=== PATIENT | female | born 1990 ===

== ENCOUNTER 2023-03-15 20:00 | Inpatient (IN) | payer MEDICAID ==
[~2023-03-15] VITALS: Ht 154.9 cm; Wt 66.2 kg
[2023-03-16] MEDS ORDERED: acetaminophen 325mg tablet PO PRN ×2 (13:10)
[2023-03-16] MEDS ORDERED: loperamide 2mg capsule PO PRN (13:10)
[2023-03-16] MEDS ORDERED: mag hydrox/Alum hydrox/simeth 30ml oral suspension PO PRN (13:10)
[2023-03-16] MEDS ORDERED: magnesium hydroxide 30ml (MOM) UD suspension PO PRN (13:10)
[2023-03-16 13:25] VITALS: BP 115/69; PULSE 80; RESP 16; TEMP 97.9; O2SAT 97
[2023-03-16] MEDS ORDERED: LORazepam 1 MG tablet PO ONE (13:45)
[2023-03-16 15:26] VITALS: RESP 16; O2SAT 97
[2023-03-16] MEDS ORDERED: SENN-263 PO (15:58)
[2023-03-16] MEDS ORDERED: LITH300T5 PO (15:58)
[2023-03-16] MEDS ORDERED: METF-1203 PO (15:58)
[2023-03-16] MEDS ORDERED: OMEP20CA16 PO (15:58)
[2023-03-16] MEDS ORDERED: LUMA21CA PO (15:58)
[2023-03-16] MEDS ORDERED: ATEN-236 PO (15:58)
[2023-03-16] MEDS: NICOTINE POLACRILEX 2 MG LOZENGE BC PRN ×2 (16:46→19:08)
--- NOTE | 2023-03-16 18:09 | NUR ---
Admission Note: Lyndsey 5150 states "You are unable to care for yourself, have pulled down your pants and had feces all over, and have delayed responses/speech". Received pt. at 1308 as a direct admit from [facility] in [place]. Pt. cooperated in skin check, however, while showering pt. became paranoid and walked out of the shower nude because she was afraid that she was locked in the shower yelling dont lock me in. Pt. observed talking on the phone crying and stating everybody is being mean and pushing me and stuff. Pt. insisting she does not belong on a mental health unit. Pt. had to be asked to leave the nurses station several times and verbally yelled at the staff when asked to leave. Pt. easily agitated, paranoid that staff are lying to her. Pt. having difficulty listening and understanding. Pt. internally responding, laughing and singing. During interview pt became distracted multiple times due to internal stimuli. At one point patient was heard talking to her voices. When asked if hearing voices pt. states yes, I have some bad spirits. Pt. received 2mg Ativan PO with good effect.
[2023-03-16 19:00] VITALS: RESP 18; O2SAT 98
[2023-03-16 20:00] VITALS: BP 119/70; PULSE 80; RESP 18; TEMP 98.1; O2SAT 98
[2023-03-16] MEDS: sennosides 8.6mg tablet PO SCH (20:00)
[2023-03-16] MEDS ORDERED: sennosides 8.6mg tablet PO SCH (20:00)
[2023-03-16] MEDS: lithium carbonate 150mg capsule PO SCH (20:27)
[2023-03-16] MEDS: atenolol 25mg tablet PO SCH (20:29)
[2023-03-16] MEDS ORDERED: OLANZAPINE 5 MG TABLET PO SCH (21:00)
--- NOTE | 2023-03-17 04:48 | NUR ---
Nursing Progress Note: Lyndsey Problem: Per admission note, 5150 states "You are unable to care for yourself, have pulled down your pants and had feces all over, and have delayed responses/speech". Interventions: Provided 1:1 assessment, maintained a safe and supportive environment, provided clear and simple instructions, attempted to reorient pt. to reality, provided redirection and intervention as needed, medication administration/education/monitoring, and maintained Q15 min safety checks. Response: Pt received on unit at nurses station requesting for a Nicotine lozenge. Her responses were delayed. Pt is engaging with staff when her requests are needing to be met but is guarded when staff is interviewing her. Pt reports no sleep disturbances at this times but has had trouble sleeping in the past. Pt has too much appetite eating dinner and various snacks. Pt will continue to be monitoring for adverse reactions to medications. Pt appearance is disheveled. Pt second interaction with staff is guarded. Pt orientation x2. Speech is slowed. Thought process is circumstantial. Thought content is anxious. Pt will continue to be assessed for visual/audio hallucinations Pt appears to be internally responding to internal stimuli as evidenced by smirking at times with no present external stimuli. Pt has poor insight. Pt judgement is poor. Mood is anxious. Pt had a tearful episode but chose to remain alone. Patch Sander provided supportive environment. Affect is constricted. Unable to assess memory due to patient choosing to discuss her care with MD and not data analyst report writer. Pt was compliant with taking most medications but refused Senna. Pt reports diarrhea. Pt requested for PRN Robitussin for sleep. Patch Sander explained purpose of Robitussin. Pt has no active cough at this time. Plan: Pt. continues to require as safe and supportive environment. Addendum: 03/17/23 at 0457 by Chantale Sharp RN CHERYL documentation: I have reviewed all intervention and assessments performed and documented by CHERYL Boudreaux.
[2023-03-17 07:30] VITALS: RESP 14; O2SAT 98
[2023-03-17 07:40] VITALS: BP 95/50; PULSE 68; RESP 14; TEMP 98.5; O2SAT 98
[2023-03-17] MEDS ORDERED: metFORMIN 500mg tablet PO SCH (08:00)
[2023-03-17] MEDS: famotidine 20mg tablet PO SCH (08:12)
[2023-03-17] MEDS: nicotine 21mg patch - 24 hr TD SCH (08:12)
[2023-03-17] MEDS: sennosides 8.6mg tablet PO SCH ×3 (08:12→21:50)
[2023-03-17] MEDS: pantoprazole 40mg Tablet.DR PO SCH (08:12)
[2023-03-17] MEDS: metFORMIN 500mg tablet PO SCH (08:12)
[2023-03-17] MEDS: NICOTINE POLACRILEX 2 MG LOZENGE BC PRN ×2 (08:17→13:17)
[2023-03-17] MEDS: hydrOXYzine 25 MG tablet PO PRN ×2 (10:02→16:02)
--- NOTE | 2023-03-17 15:07 | NUR ---
INFO FROM [facility] Mateo Mendez (ph# [phone]), Clinician from [facility], called to provide information. He reported the following: Lyndsey was released from [facility] October 2022. She had been conserved for 5-6 years. [facility] she began tapering off clozaril with her psychiatrist at [facility] due to her request. Per Mateo, Lyndsey was quite stable and doing well on clozaril. She has been completely off clozaril December/January 2023. She has not been doing well with her current medication regimen which includes caplyta. He reported they have noticed an increase in paranoia, anxiety, attending to internal stimuli, and has been unable to function. [facility] which is some sort of [facility] independent, congregate living. She is able to return to her living situation upon discharge. Mateo requested Lyndsey go back on clozaril. TAISHA Dale
[2023-03-17] MEDS ORDERED: CLOZAPINE 25 MG oral disintegrating tablet PO PRN ×3 (15:25)
[2023-03-17] MEDS: CLOZAPINE 25 MG oral disintegrating tablet PO SCH ×2 (16:24→21:44)
--- NOTE | 2023-03-17 16:44 | NUR ---
Nursing Progress Note: Lyndsey Problem: 5150 states "You are unable to care for yourself, have pulled down your pants and had feces all over, and have delayed responses/speech". Received pt. as a direct admit from [facility] in [place]. Pt. has history of schizophrenia, bipolar, and DM II. Interventions: Provided 1:1 assessment, maintained a safe and supportive environment, provided clear and simple instructions, attempted to reorient pt. to reality, provided redirection and intervention as needed, medication administration/education/monitoring, and maintained Q15 min safety checks. Response: Pt received asleep. Pt. has a labile mood, while passing am medications pt. began to cry about having diabetes due to metformin prescribed. Pt is engaging with staff when she has needs to be met but is guarded when staff interact with her otherwise. Pt. observed staff splitting to get desires met and is continuously asking to change rooms. Pt. becomes easily agitated if asked to clarify needs or if staff do not move quickly enough for her. Quick Mixer Operator found urine in pt.s trash cans; trash cans were removed from her room. Pt. states that her right heel hurts because she is being spiritually attacked and stated why would God send me here? Pt. ate all meals in the community room. Pt. went out on patio today. Pt took all medications cooperatively. Gave PRN Atarax 50mg with minimal effect. Pt. started on Clozapine today. Pt. displays episodes of difficulty processing information and is observed thought blocking. Thought process is circumstantial and thought content is anxious. Pt. displaying paranoia by asking to make sure staff are checking all the correct boxes when charting and by asking to see what was written down. Pt. appearance is disheveled. Performed 1:1 at bedside. Pt. denies SI/HI, and AVH. Pt. observed interacting with other patients. Plan: Pt. continues to require as safe and supportive environment.
[2023-03-17 19:00] VITALS: BP 119/65; PULSE 92; RESP 18; TEMP 98; O2SAT 99
[2023-03-17] MEDS: atenolol 25mg tablet PO SCH (21:43)
[2023-03-17] MEDS: lithium carbonate 150mg capsule PO SCH (21:43)
--- NOTE | 2023-03-18 04:26 | NUR ---
Nursing Progress Note: Lyndsey Problem: Per admission note, 5150 states "You are unable to care for yourself, have pulled down your pants and had feces all over, and have delayed responses/speech". Interventions: Provided 1:1 assessment, maintained a safe and supportive environment, provided clear and simple instructions, attempted to reorient pt. to reality, provided redirection and intervention as needed, medication administration/education/monitoring, and maintained Q15 min safety checks. Response: Pt received sleeping in room. Pt was offered snack but did not participate. She slept throughout shift. She briefly awoke to take Hs medications including Clozaril. Pt refused Senna. Pt appeared drowsy and had brief periods of paranoia during medications pass. Pt will continue to be monitoring for adverse reactions to medications. Pt appearance is disheveled. Plan: Pt. continues to require as safe and supportive environment. Addendum: 03/18/23 at 0553 by Perlita Newman RN I have reviewed the PICTURE FRAME MAKER note. Perlita Newman RN
[2023-03-18] MEDS: CLOZAPINE 25 MG oral disintegrating tablet PO SCH ×2 (07:52→20:21)
[2023-03-18] MEDS: nicotine 21mg patch - 24 hr TD SCH (07:52)
[2023-03-18] MEDS: sennosides 8.6mg tablet PO SCH ×2 (07:53→20:20)
[2023-03-18] MEDS: metFORMIN 500mg tablet PO SCH (07:53)
[2023-03-18] MEDS: pantoprazole 40mg Tablet.DR PO SCH (07:53)
[2023-03-18] MEDS: famotidine 20mg tablet PO SCH (07:53)
[2023-03-18 08:00] VITALS: BP 91/42; PULSE 74; RESP 12; TEMP 98.5; O2SAT 97
[2023-03-18] MEDS: NICOTINE POLACRILEX 2 MG LOZENGE BC PRN ×2 (08:04→16:56)
[2023-03-18] MEDS: hydrOXYzine 25 MG tablet PO PRN (08:24)
--- NOTE | 2023-03-18 11:49 | NUR ---
Initial: Pt admit for gravely disabled d/t mental illness. Currently on a regular diet and eating well, documented with average 90% PO intake meeting estimated nutrient needs. LBM 03/17 per EMR, receiving routine bowel care. No nutrition intervention implemented at this time. Will continue to follow. Recommendations: 1) Continue regular diet 2) Routine bowel care 3) Weekly scaled weights Addendum: 03/18/23 at [address] Amended: Links added.
--- NOTE | 2023-03-18 16:36 | NUR ---
Nursing Progress Note: Lyndsey Problem: 5150 states "You are unable to care for yourself, have pulled down your pants and had feces all over, and have delayed responses/speech". Received pt. as a direct admit from [facility] in [place]. Pt. has history of schizophrenia, bipolar, and DM II. Interventions: Provided 1:1 assessment, maintained a safe and supportive environment, provided clear and simple instructions, attempted to reorient pt. to reality, provided redirection and intervention as needed, medication administration/education/monitoring, and maintained Q15 min safety checks. Response: Received pt. asleep. Woke for breakfast and was compliant with medications. Pt. displaying a labile mood. Pt. has difficulty processing RNs directions and responses continuously stating why isnt anyone understanding me. Pt. displaying paranoia by asking to see what was written down and trying to take papers from this RN. Pt. stated several times I have my rights when staff is having conversations. Pt. appearance is disheveled. Pt. ate all meals in the community room. Gave PRN Atarax 50mg with minimal effect. Pt. threw candy given to her at the litigation legal secretary in the nursing station. Performed 1:1 at bedside. Pt. denies SI/HI, and AVH. PRN Clozapine 25mg given with good effect. Pt. napping intermittently. Plan: Pt. continues to require as safe and supportive environment.
[2023-03-18 19:00] VITALS: BP 121/75; PULSE 92; RESP 14; TEMP 98; O2SAT 100
[2023-03-18] MEDS: lithium carbonate 150mg capsule PO SCH (20:20)
[2023-03-18] MEDS: atenolol 25mg tablet PO SCH (20:21)
--- NOTE | 2023-03-18 21:00 | NUR ---
Pt did not have Nicotine patch in place. Pt labile during requesting to see site of administration. Pt stated the prior nurse removed patch. Addendum: 03/18/23 at 2332 by Janusz Masterson LVN, LVN Amended: Links added.
--- NOTE | 2023-03-19 05:40 | NUR ---
Nursing Progress Note: Lyndsey Problem: Per admission note, 5150 states "You are unable to care for yourself, have pulled down your pants and had feces all over, and have delayed responses/speech". Interventions: Provided 1:1 assessment, maintained a safe and supportive environment, provided clear and simple instructions, attempted to reorient pt. to reality, provided redirection and intervention as needed, medication administration/education/monitoring, and maintained Q15 min safety checks. Response: Pt received on unit in room. Pt observed pacing through lee and spending time in day room. Pt continues to report large appetite. Pt stating she wants to take all her medications in order to discharge as planned with MD. After medication pass, proposal writer requested patient to remove nicotine patch. Pt was not able to find patch on bilateral upper arms and stated prior nurse had collected. Pt was easily agitated with request. Pt spent rest of shift in room. Plan: Pt. continues to require as safe and supportive environment.
[2023-03-19 07:00] VITALS: RESP 12; O2SAT 97
[2023-03-19 08:00] VITALS: BP 103/57; PULSE 74; RESP 16; TEMP 98.2; O2SAT 98
[2023-03-19] MEDS: nicotine 21mg patch - 24 hr TD SCH (08:24)
[2023-03-19] MEDS: CLOZAPINE 25 MG oral disintegrating tablet PO SCH ×2 (08:25→20:17)
[2023-03-19] MEDS: pantoprazole 40mg Tablet.DR PO SCH (08:26)
[2023-03-19] MEDS: sennosides 8.6mg tablet PO SCH ×2 (08:26→20:17)
[2023-03-19] MEDS: metFORMIN 500mg tablet PO SCH (08:26)
[2023-03-19] MEDS: famotidine 20mg tablet PO SCH (08:26)
--- NOTE | 2023-03-19 17:47 | NUR ---
Nursing Progress Note: Problem: 5150 states "You are unable to care for yourself, have pulled down your pants and had feces all over, and have delayed responses/speech". Received pt. as a direct admit from [facility] in [place]. Pt. has history of schizophrenia, bipolar, and DM II. Interventions: Provided 1:1 assessment, maintained a safe and supportive environment, provided clear and simple instructions, attempted to reorient pt. to reality, provided redirection and intervention as needed, medication administration/education/monitoring, and maintained Q15 min safety checks. Response: Patient woke before breakfast. She is irritable and labile in the morning. Patient eats in the dining room with her peers, and is compliant with all medications. She appears disoriented and makes bizarre statements in the morning, then afternoon she clears and is making normal requests like, may I have a piece of tape so I can hang my picture? She naps intermittently through the day and during wake times she is coloring, pacing, or sitting in her chair. Patient will not speak about the reason she is here. Plan: Pt. continues to require as safe and supportive environment.
[2023-03-19 19:17] VITALS: BP 119/70; PULSE 87; RESP 16; TEMP 98.3; O2SAT 98
[2023-03-19] MEDS: lithium carbonate 150mg capsule PO SCH (20:17)
[2023-03-19] MEDS: atenolol 25mg tablet PO SCH (20:18)
--- NOTE | 2023-03-19 21:13 | NUR ---
Nursing Progress Note: Problem: 5150 states "You are unable to care for yourself, have pulled down your pants and had feces all over, and have delayed responses/speech". Received pt. as a direct admit from [facility] in [place]. Pt. has history of schizophrenia, bipolar, and DM II. Interventions: Provided 1:1 assessment, maintained a safe and supportive environment, provided clear and simple instructions, attempted to reorient pt. to reality, provided redirection and intervention as needed, medication administration/education/monitoring, and maintained Q15 min safety checks. Response: Pt was in the hallway at change of shift every day. Pt is demanding and irritable, "if you're my nurse can you get my meds now? I want to go to bed." Explained to patient the meds are given on schedule. Pt states she wants to take her meds on time. Pt states 'I dont know why Im here, I'm ready to go home! You tell me when I can go." Pt took a shower and had snacks and remained somewhat agitated. Pt went to bed. "Can you close that door and quit bugging me!" Plan: Pt. continues to require as safe and supportive environment.
[2023-03-20] MEDS ORDERED: CLOZAPINE 25 MG oral disintegrating tablet PO PRN (06:35)
[2023-03-20 07:30] VITALS: RESP 12; O2SAT 97
[2023-03-20] MEDS: nicotine 21mg patch - 24 hr TD SCH (07:47)
[2023-03-20] MEDS: CLOZAPINE 25 MG oral disintegrating tablet PO SCH (07:47)
[2023-03-20] MEDS: metFORMIN 500mg tablet PO SCH (07:47)
[2023-03-20] MEDS: pantoprazole 40mg Tablet.DR PO SCH (07:47)
[2023-03-20] MEDS: sennosides 8.6mg tablet PO SCH ×2 (07:47→20:24)
[2023-03-20] MEDS: famotidine 20mg tablet PO SCH (07:47)
[2023-03-20] MEDS: NICOTINE POLACRILEX 2 MG LOZENGE BC PRN (07:56)
[2023-03-20 08:56] VITALS: BP 124/58; PULSE 74; RESP 16; TEMP 99.2; O2SAT 97
--- NOTE | 2023-03-20 11:31 | NUR ---
Nursing Progress Note: Problem: 5150 states "You are unable to care for yourself, have pulled down your pants and had feces all over, and have delayed responses/speech". Received pt. as a direct admit from [facility] in [place]. Pt. has history of schizophrenia, bipolar, and DM II. Interventions: Provided 1:1 assessment, maintained a safe and supportive environment, provided clear and simple instructions, attempted to reorient pt. to reality, provided redirection and intervention as needed, medication administration/education/monitoring, and maintained Q15 min safety checks. Response: Patient wakes up irritable and bad mood. Lab came to draw blood, but patient threw us out of her room because she thought the mission worker did not move fast enough. She has no patience or frustration tolerance. When she wants something its a demand, not a request. Her thought process does not allow flexibility. She denies MH symptoms and is in denial that she has a mental illness. Patient spends most of her time on her bed, no groups or socialization. Plan: Pt. continues to require as safe and supportive environment.
[2023-03-20] MEDS ORDERED: clozapine 25mg tablet PO SCH (15:57)
[2023-03-20] MEDS ORDERED: clozapine 25mg tablet PO PRN ×3 (15:58→15:59)
[2023-03-20 19:00] VITALS: RESP 18; O2SAT 99
[2023-03-20] MEDS: atenolol 25mg tablet PO SCH (20:23)
[2023-03-20] MEDS: lithium carbonate 150mg capsule PO SCH (20:24)
[2023-03-20] MEDS: LORazepam 0.5 MG tablet PO PRN (20:24)
[2023-03-20 20:47] VITALS: BP 118/85; PULSE 105; RESP 18; TEMP 98.9; O2SAT 99
--- NOTE | 2023-03-21 05:11 | NUR ---
Nursing Progress Note: Lyndsey Problem: 5150 states "You are unable to care for yourself, have pulled down your pants and had feces all over, and have delayed responses/speech". Received pt. as a direct admit from [facility] in [place]. Pt. has history of schizophrenia, bipolar, and DM II. Interventions: Provided 1:1 assessment, maintained a safe and supportive environment, provided clear and simple instructions, attempted to reorient pt. to reality, provided redirection and intervention as needed, medication administration/education/monitoring, and maintained Q15 min safety checks. Response: Pt is at the nurses station asking about her blood draw. I am supposed to get my blood test so I can leave tomorrow. Lab called about drawing pt. and they came up to the unit and did a blood draw on two other pt.s , but [facility] didnt have an order to draw Lyndsey. This made pt. agitated because she thinks she is being discharged tomorrow after results are in. Pts last known blood draw was on 03/13/23 before admission. WBC is 13.65, ANC is 9.83 and Adamson level is 0.5. Pt was placed on a 5250 [address] a [address] hearing tomorrow. Pt is labile and demanding her medications to be given early. What about my blood test, are you going to call the doctor about it? Pt was reassured that her message would be related to doctor in morning. Pt is medication compliant and was given Ativan 0.5mg with HS medications. Monitor for safety. Plan: Pt. continues to require as safe and supportive environment.
[2023-03-21 07:00] VITALS: RESP 16; O2SAT 98
[2023-03-21 08:00] VITALS: BP 94/52; PULSE 68; RESP 16; TEMP 97.8; O2SAT 98
[2023-03-21] MEDS: sennosides 8.6mg tablet PO SCH ×2 (08:00→20:57)
[2023-03-21] MEDS: metFORMIN 500mg tablet PO SCH (08:05)
[2023-03-21] MEDS: famotidine 20mg tablet PO SCH (08:05)
[2023-03-21] MEDS: pantoprazole 40mg Tablet.DR PO SCH (08:05)
[2023-03-21] MEDS: clozapine 25mg tablet PO SCH ×2 (08:06→20:58)
[2023-03-21] MEDS: nicotine 21mg patch - 24 hr TD SCH (08:08)
[2023-03-21 08:40] LABS: BASOPHILS # (AUTO) 0.1 X10'3 (0-0.2); BASOPHILS % (AUTO) 0.7 % (0-1); EOSINOPHILS # (AUTO) 0.3 X10'3 (0-0.9); EOSINOPHILS % (AUTO) 2.1 % (0-6); HEMATOCRIT 38.1 % (35.0-45.0); HEMOGLOBIN 11.9 g/dl (12.0-16.0); LYMPHOCYTES # (AUTO) 3.6 X10'3 (1.1-4.8); LYMPHOCYTES % (AUTO) 30.5 % (21-51); MEAN CORPUSCULAR HEMOGLOBIN 25.2 PG (27.0-31.0); MEAN CORPUSCULAR HGB CONC 31.2 g/dL (33.0-36.5); MEAN CORPUSCULAR VOLUME 80.9 FL (78-98); MEAN PLATELET VOLUME 9.6 FL (7.4-10.4); MONOCYTES # (AUTO) 0.8 X10'3 (0-0.9); MONOCYTES % (AUTO) 6.6 % (2-12); NEUTROPHILS # (AUTO) 7.1 X10'3 (1.8-7.7); NEUTROPHILS % (AUTO) 60.1 % (42-75); PLATELET COUNT 272 X10'3 (140-440); RED BLOOD COUNT 4.71 X10'6 (4.20-5.60); RED CELL DISTRIBUTION WIDTH 15.7 % (11.5-14.5); WHITE BLOOD COUNT 11.9 X10'3 (4.5-11.0)
--- NOTE | 2023-03-21 13:49 | NUR ---
5250 upheld for GD
--- NOTE | 2023-03-21 16:33 | NUR ---
Nursing Progress Note: Problem: 5150 states "You are unable to care for yourself, have pulled down your pants and had feces all over, and have delayed responses/speech". Received pt. as a direct admit from [facility] in [place]. Pt. has history of schizophrenia, bipolar, and DM II. Interventions: 1:1 assessment, establishment of rapport, therapeutic communication, active listening, medication administration/education/monitoring, education on unit procedures and mental health holds, provided distraction, redirection, positive reinforcement, and maintained Q15 minute safety checks. Response: Patient was up for breakfast and cooperative with her medications. Pt stated, "I just need to take my meds everyday." Pt refused her routine Senna stating she did not need it as she is having regular bowel movements. Pt perseverated for awhile on wanting to be discharged. Pt had a 5250 hearing today, she spoke with the patient's rights advocate at length about how she did not wish to be stuck here. She intended to attend the hearing, however, upon seeing security present for the hearings she changed her mind. Pt stated that she did not wish for security to know her business. It would appear that pt is experiencing some paranoia. Pt's 5250 was upheld. Pt allowed her blood to be drawn this morning, her WBC was 11.9. It was noted that pt was wearing a fleece gizzard puller jacket that had a long stretchy cord at the bottom of it. Pt did not wish to relinquish the jacket so asked this nurse to cut off the cord. Pt was friendly at times with this nurse and expressed how she would like some more tattoos; a Felton on one arm and money on the other. Pt's HS Atenolol was D/c'd. Pt's next CBC is scheduled for 03/28/23. Plan: Pt has been restarted on Clozaril, she needs medication adjustment and monitoring in a safe and therapeutic environment until stable. Addendum: 03/21/23 at 1649 by Carly Padilla RN (Lee) Pt had a HgbA1c drawn today with normal results: 5.3
[2023-03-21 16:39] LABS: HEMOGLOBIN A1C 5.3 % (4.5-6.2)
[2023-03-21 16:47] LABS: ALANINE AMINOTRANSFERASE 26 U/L (12-78); ALBUMIN 3.6 G/DL (3.4-5.0); ALKALINE PHOSPHATASE 78 IU/L (46-116); ANION GAP 10 (8-16); ASPARTATE AMINO TRANSFERASE 16 U/L (10-37); BILIRUBIN,TOTAL 0.3 MG/DL (0.1-1.0); BLOOD UREA NITROGEN 9 MG/DL (7-18); BUN/CREATININE RATIO 12.5 (10.0-20.0); CALCIUM 10.1 MG/DL (8.5-10.1); CHLORIDE 106 MMOL/L (99-107); CREATININE 0.72 MG/DL (0.40-0.90); GLUCOSE 110 MG/DL (70-104); POTASSIUM 4.3 MMOL/L (3.5-5.1); SODIUM 142 MMOL/L (135-145); TOTAL CARBON DIOXIDE 25.8 MMOL/L (24-32); TOTAL PROTEIN 7.2 G/DL (6.4-8.2); eGFR > 90 ML/MIN
[2023-03-21 19:00] VITALS: RESP 16; O2SAT 98
[2023-03-21 20:00] VITALS: BP 120/73; PULSE 75; RESP 16; TEMP 98.3; O2SAT 98
[2023-03-21] MEDS: lithium carbonate 150mg capsule PO SCH (20:57)
--- NOTE | 2023-03-22 05:13 | NUR ---
Nursing Progress Note: Lyndsey Problem: 5150 states "You are unable to care for yourself, have pulled down your pants and had feces all over, and have delayed responses/speech". Received pt. as a direct admit from [facility] in [place]. Pt. has history of schizophrenia, bipolar, and DM II. Interventions: 1:1 assessment, establishment of rapport, therapeutic communication, active listening, medication administration/education/monitoring, education on unit procedures and mental health holds, provided distraction, redirection, positive reinforcement, and maintained Q15 minute safety checks. Response: Pt was seen twirling around in the hallway. Pt is less labile tonight. Pt did not perseverate on being discharged. Pt did not like that the doctor increased her Clozaril tonight. It gives me a headache. Pt is medication compliant. Pt isolated to her room tonight. Denies SI/HI/AVH. Pt does appear paranoid and couldnt explain why she didnt go to court. Pt covers up her head with a blanket when she is sleeping. No behavioral issues observed. Pt has minimal contact with staff, only to get her needs met. Monitor for safety. Plan: Pt has been restarted on Clozaril, she needs medication adjustment and monitoring in a safe and therapeutic environment until stable.
[2023-03-22 07:00] VITALS: RESP 16; O2SAT 99
[2023-03-22 08:00] VITALS: BP 135/71; PULSE 112; RESP 16; TEMP 98.9; O2SAT 99
[2023-03-22] MEDS: sennosides 8.6mg tablet PO SCH ×2 (08:05→20:38)
[2023-03-22] MEDS: pantoprazole 40mg Tablet.DR PO SCH (08:05)
[2023-03-22] MEDS: metFORMIN 500mg tablet PO SCH (08:05)
[2023-03-22] MEDS: LORazepam 0.5 MG tablet PO PRN (08:05)
[2023-03-22] MEDS: clozapine 25mg tablet PO SCH ×2 (08:05→20:38)
[2023-03-22] MEDS: famotidine 20mg tablet PO SCH (08:05)
[2023-03-22] MEDS: nicotine 21mg patch - 24 hr TD SCH (08:11)
--- NOTE | 2023-03-22 16:37 | NUR ---
Nursing Progress Note: Problem: 5150 states "You are unable to care for yourself, have pulled down your pants and had feces all over, and have delayed responses/speech". Received pt. as a direct admit from [facility] in [place]. Pt. has history of schizophrenia, bipolar, and DM II. Interventions: 1:1 assessment, therapeutic communication, active listening, medication administration/education/monitoring, provided distraction, redirection, positive reinforcement, and maintained Q15 minute safety checks. Response: Patient was up for breakfast. Pt became frustrated and angry during a telephone conversation with her mother after breakfast. Pt wants to go home and mom does not seem to feel that is a good idea. Pt was given a PRN Ativan 0.5 mg with her routine morning medications. Pt was cooperative with her medications although did not like the location on her shoulder where this nurse placed her nicotine patch. Moved patch lower on her arm where she wanted it so she could see it. Pt was abrupt, irritable, and dismissive with this nurse. Pt removed her nicotine patch at 0848 and handed it to staff. Pt stated, "I don't think it does anything." Pt spent much of the day isolative to self and room. Plan: Pt has been restarted on Clozaril, she needs medication adjustment and monitoring in a safe and therapeutic environment until stable.
[2023-03-22 19:00] VITALS: RESP 16; O2SAT 97
[2023-03-22 20:00] VITALS: BP 100/60; PULSE 76; RESP 16; TEMP 98.9; O2SAT 97
[2023-03-22] MEDS: lithium carbonate 150mg capsule PO SCH (20:39)
--- NOTE | 2023-03-23 05:03 | NUR ---
Nursing Progress Note: Lyndsey Problem: 5150 states "You are unable to care for yourself, have pulled down your pants and had feces all over, and have delayed responses/speech". Received pt. as a direct admit from [facility] in [place]. Pt. has history of schizophrenia, bipolar, and DM II. Interventions: 1:1 assessment, establishment of rapport, therapeutic communication, active listening, medication administration/education/monitoring, education on unit procedures and mental health holds, provided distraction, redirection, positive reinforcement, and maintained Q15 minute safety checks. Response: Pt was sleeping at the start of noc shift. Pt woke easily to take her HS medications. Pt did so without any prompting. Pt is guarded and withdrawn. Pt did not want to talk or give up her nicotine patch. No delusional or paranoid statements made to this typewriter mechanic. Monitor for safety. Plan: Pt has been restarted on Clozaril, she needs medication adjustment and monitoring in a safe and therapeutic environment until stable.
[2023-03-23 07:30] VITALS: BP 94/51; PULSE 69; RESP 16; TEMP 98.4; O2SAT 98
[2023-03-23] MEDS: sennosides 8.6mg tablet PO SCH ×2 (07:58→20:20)
[2023-03-23] MEDS: metFORMIN 500mg tablet PO SCH (07:58)
[2023-03-23] MEDS: pantoprazole 40mg Tablet.DR PO SCH (07:58)
[2023-03-23] MEDS: clozapine 25mg tablet PO SCH ×2 (07:58→20:20)
[2023-03-23] MEDS: famotidine 20mg tablet PO SCH (07:58)
[2023-03-23] MEDS: nicotine 21mg patch - 24 hr TD SCH (08:00)
--- NOTE | 2023-03-23 15:58 | NUR ---
Nursing Progress Note: Lyndsey Problem: 5150 states "You are unable to care for yourself, have pulled down your pants and had feces all over, and have delayed responses/speech". Received pt. as a direct admit from [facility] in [place]. Pt. has history of schizophrenia, bipolar, and DM II. Interventions: 1:1 assessment, establishment of rapport, therapeutic communication, active listening, medication administration/education/monitoring, education on unit procedures and mental health holds, provided distraction, redirection, positive reinforcement, and maintained Q15 minute safety checks. Response:Patient was found sleeping at beginning of shift. Patient continued to rest until nurse brought in morning medications. Patient refused nicotine patch stating it doesn't work. Patient retuned to resting until coming out to ask nurse when she was leaving and if she could talk to manager social responsibility since she states the doctor said she is leaving tomorrow. Patient got up and asked nurse multiple times if everyone knew she was leaving tomorrow and that her ride is ready for her. Patient ate very little for lunch before returning to bed. Patient is eager to go home. Plan: Pt has been restarted on Clozaril, she needs medication adjustment and monitoring in a safe and therapeutic environment until stable.
[2023-03-23 19:00] VITALS: BP 131/73; PULSE 90; RESP 16; TEMP 99.3; O2SAT 97
[2023-03-23] MEDS: lithium carbonate 150mg capsule PO SCH (20:20)
--- NOTE | 2023-03-24 01:09 | NUR ---
Nursing Progress Note: Lyndsey Problem: 5150 states "You are unable to care for yourself, have pulled down your pants and had feces all over, and have delayed responses/speech". Received pt. as a direct admit from [facility] in [place]. Pt. has history of schizophrenia, bipolar, and DM II. Interventions: 1:1 assessment, establishment of rapport, therapeutic communication, active listening, medication administration/education/monitoring, education on unit procedures and mental health holds, provided distraction, redirection, positive reinforcement, and maintained Q15 minute safety checks. Response: Patient was resting in her bed. Pt states she is ready to go home back to [place], she is tired of being here. She seems to be doing better, pt is not irritable or labile. Denies AH/VH, doesnt seem to be responding to IS. She is tolerating the increased dose of clozapine and states I dont want to feel sick all the time so I will take my meds. Pt isolated all evening. Medication compliant. Plan: Pt has been restarted on Clozaril, she needs medication adjustment and monitoring in a safe and therapeutic environment until stable.
[2023-03-24] MEDS ORDERED: HYDR-3686 PO (06:34)
[2023-03-24] MEDS ORDERED: CLOZ50TA9 PO (06:34)
[2023-03-24] MEDS ORDERED: SENN-362 PO (06:34)
[2023-03-24] MEDS ORDERED: METF-1203 PO (06:34)
[2023-03-24] MEDS ORDERED: PANT40TA54 PO (06:34)
[2023-03-24] MEDS ORDERED: LITH600C PO (06:34)
[2023-03-24] MEDS ORDERED: NICO-687 TD (06:34)
[2023-03-24 07:00] VITALS: RESP 16; O2SAT 98
--- NOTE | 2023-03-24 07:43 | NUR ---
DISCHARGE PLAN Lyndsey is getting picked up today 10-10:30 AM by [facility] transport. She is returning to her home in [place]. She has follow up scheduled with [facility]. TAISHA Dale
[2023-03-24] MEDS: nicotine 21mg patch - 24 hr TD SCH (08:00)
[2023-03-24] MEDS: metFORMIN 500mg tablet PO SCH (08:10)
[2023-03-24] MEDS: pantoprazole 40mg Tablet.DR PO SCH (08:10)
[2023-03-24] MEDS: clozapine 25mg tablet PO SCH (08:10)
[2023-03-24] MEDS: famotidine 20mg tablet PO SCH (08:11)
[2023-03-24] MEDS: sennosides 8.6mg tablet PO SCH (08:11)
[2023-03-24 08:40] VITALS: BP 116/61; PULSE 88; RESP 16; TEMP 99.1; O2SAT 98
--- NOTE | 2023-03-24 13:18 | NUR ---
Nursing Discharge Note Pt discharged from [facility] @ 1233 to Outcome Referrals to return home. Pt excited to leave and in bright mood. Pt in no physical or emotional distress, denies SI and has been improving since admission. Her belongings were inventoried and returned to her. Pt did not want nicotine replacement and understood her discharge and follow-up plans.
== END 2023-03-24 16:16 | disposition home or self-care (01) | DRG 750 ==
LOC: ADULT MH 20:00 → UNDOADMIN 20:00 → ADULT MH 03-16 13:08 → UNDODISIN 03-24 11:21
PROVIDERS: ADMIT Psychiatry & Neurology Psychiatry; ATTEND Psychiatry & Neurology Psychiatry
DX: F25.0 Schizoaffective disorder, bipolar type (principal); F29 Unspecified psychosis not due to a substance or known physiological condition; E11.9 Type 2 diabetes mellitus without complications; E66.9 Obesity, unspecified; I10 Essential (primary) hypertension; E78.5 Hyperlipidemia, unspecified; F12.10 Cannabis abuse, uncomplicated; F15.10 Other stimulant abuse, uncomplicated; F17.210 Nicotine dependence, cigarettes, uncomplicated; K21.9 Gastro-esophageal reflux disease without esophagitis; Z88.6 Allergy status to analgesic agent; Z68.27 Body mass index [BMI] 27.0-27.9, adult; Z79.899 Other long term (current) drug therapy; Z91.148 Patient's other noncompliance with medication regimen for other reason
CPT/HCPCS: 36415; 80053; 83036; 85025; 87081; Q0177